=== PATIENT | female | born 1965 | race Caucasian/White ===

== ENCOUNTER 2018-05-22 10:29 | Outpatient (CLI) | payer BC | END 2018-05-22 10:30 | disposition home or self-care (01) | LOC: BICMAMMO 10:29 | PROVIDERS: ATTEND Family Medicine | DX: Z12.31 Encounter for screening mammogram for malignant neoplasm of breast (principal); N63.10 Unspecified lump in the right breast, unspecified quadrant | CPT/HCPCS: 77063; 77067 ==

== ENCOUNTER 2018-05-31 08:51 | Outpatient (CLI) | payer BC ==
--- NOTE | 2018-05-31 11:07 | ULT ---
RIGHT BREAST ULTRASOUND: HISTORY: Call-back, abnormal mammogram. COMPARISON: Mammogram from the same day. FINDINGS: Corresponding to the mammographic finding is a 7 mm, wider than tall, lymph node, with a normal fatty hilum, in the right breast, at 9 o'clock. No other abnormality is present. IMPRESSION: BI-RADS 2-Benign findings. Continued screening recommended. POS: OFF
== END 2018-05-31 08:52 | disposition home or self-care (01) ==
LOC: BICMAMMO 08:51
PROVIDERS: ATTEND Family Medicine
DX: N63.10 Unspecified lump in the right breast, unspecified quadrant (principal)
CPT/HCPCS: G0279

== ENCOUNTER 2019-07-23 08:55 | Outpatient (CLI) | payer BC ==
--- NOTE | 2019-07-23 09:24 | MMO ---
Bilateral MAMMO Bilat Screen [facility]. CLINICAL HISTORY: Patient is 53 years old and is seen for screening. The patient has no family history of breast cancer. The patient has no personal history of cancer. VIEWS: The views performed were: bilateral craniocaudal with tomosynthesis and bilateral mediolateral oblique with tomosynthesis. FILMS COMPARED: The present examination has been compared to prior imaging studies performed at [facility] on 05/22/2018 and 05/31/2018. This study has been interpreted with the assistance of computer-aided detection. MAMMOGRAM FINDINGS: There are scattered fibroglandular densities. There are benign appearing and vascular calcifications seen in both breasts. There are no suspicious masses, suspicious calcifications, or new areas of architectural distortion. IMPRESSION: THERE IS NO MAMMOGRAPHIC EVIDENCE OF MALIGNANCY. A ROUTINE FOLLOW-UP MAMMOGRAM IN 1 YEAR IS RECOMMENDED. THE RESULTS OF THIS EXAM WERE SENT TO THE PATIENT. ACR BI-RADS Category 2 - Benign finding MAMMOGRAPHY NOTE: 1. A negative mammogram report should not delay a biopsy if a dominant of clinically suspicious mass is present. 2. Approximately 10% to 15% of breast cancers are not detected by mammography. 3. Adenosis and dense breasts may obscure an underlying neoplasm. Reported by: PAULO HODGSON MD Electonically Signed: [id number]
== END 2019-07-23 08:56 | disposition home or self-care (01) ==
LOC: BICMAMMO 08:55
PROVIDERS: ATTEND Physician Assistant
DX: Z12.31 Encounter for screening mammogram for malignant neoplasm of breast (principal)
CPT/HCPCS: 77063; 77067

== ENCOUNTER 2020-01-29 07:50 | Outpatient (CLI) | payer BC ==
--- NOTE | 2020-01-29 10:49 | MRI ---
LUMBAR SPINE MRI WITHOUT IV CONTRAST: HISTORY: Radiculopathy. Chronic back pain and hip pain. COMPARISON: 02/26/2015. FINDINGS: Generalized disk desiccation changes and ligament and facet hypertrophic changes. No evidence for ac [place] abnormal marrow edema. Conus medullaris region is unremarkable. T12-L1 disk: Right central and paracentral protrusion with minimal indention of the ventral thecal s ac and slight thinning of the lateral recesses bilaterally. L1-L2 disk: Posterolateral protrusions more marked on the left side with some left lateral recess an d left foraminal stenosis. L2-L3 disk: Mild bilateral recess stenosis. Left posterolateral annular fissure. L3-L4 disk: Mild central canal and moderate lateral recess stenosis and moderate bilateral foraminal stenosis. L4-L5 disk: Moderate central canal and moderate to severe lateral recess stenosis with several bilat eral annular fissures and moderate bilateral foraminal stenosis. L5-S1: Disk-osteophytosis more marked left posterolateral region with some mild bilateral recess naheed nosis and moderate left foraminal stenosis and associated left posterolateral annular fissure. IMPRESSION: Multilevel variable severity canal, lateral recess, and foraminal stenosis with some multilevel annul ar fissures with little overall change from 02/26/2015. POS: RRE
== END 2020-01-29 07:51 | disposition home or self-care (01) ==
LOC: SCSMRI 07:50
PROVIDERS: ATTEND Anesthesiology
DX: M51.17 Intervertebral disc disorders with radiculopathy, lumbosacral region (principal); M48.061 Spinal stenosis, lumbar region without neurogenic claudication; Q05.7 Lumbar spina bifida without hydrocephalus
CPT/HCPCS: 72148

== ENCOUNTER 2020-08-31 09:49 | Outpatient (CLI) | payer BC ==
--- NOTE | 2020-08-31 10:19 | RAD ---
RIGHT HIP 2 VIEWS: Date: 08/31/2020 HISTORY: Right hip pain. FINDINGS/IMPRESSION: Unremarkable right hip. No fracture, dislocation, or other significant acute osseous process. POS: OFF
--- NOTE | 2020-08-31 10:20 | RAD ---
LEFT HIP 2 VIEWS: Date: 08/31/2020 HISTORY: Left hip pain. FINDINGS: Several circumscribed calcific foci overlie the region of the left greater trochanter, evidence for p ossible enthesophytic change versus focal heterotopic ossification. No fracture, dislocation, or othe r significant acute process. IMPRESSION: Several scattered areas of ossification overlying the region of the greater trochanter, possibly repr esenting enthesophytic change versus heterotopic ossification. No fracture or dislocation. POS: OFF
== END 2020-08-31 09:50 | disposition home or self-care (01) ==
LOC: BICRAD 09:49
PROVIDERS: ATTEND Nurse Practitioner Family
DX: M25.552 Pain in left hip (principal); M25.551 Pain in right hip; M25.852 Other specified joint disorders, left hip

== ENCOUNTER 2020-12-16 08:52 | Outpatient (CLI) | payer BC | END 2020-12-16 08:53 | disposition home or self-care (01) | LOC: BICMAMMO 08:52 | PROVIDERS: ATTEND Family Medicine | DX: Z12.31 Encounter for screening mammogram for malignant neoplasm of breast (principal) | CPT/HCPCS: 77063; 77067 ==

== ENCOUNTER 2022-07-26 13:34 | Outpatient (CLI) | payer BC | END 2022-07-26 13:35 | disposition home or self-care (01) | LOC: SCSMRI 13:34 → BICMRI 13:35 | PROVIDERS: ATTEND Orthopaedic Surgery | DX: D48.0 Neoplasm of uncertain behavior of bone and articular cartilage (principal) ==

== ENCOUNTER 2022-11-15 10:42 | Outpatient (CLI) | payer BC | END 2022-11-15 10:43 | disposition home or self-care (01) | LOC: BICMAMMO 10:42 | PROVIDERS: ATTEND Family Medicine | DX: Z12.31 Encounter for screening mammogram for malignant neoplasm of breast (principal) | CPT/HCPCS: 77063; 77067 ==